=== PATIENT | male | born 1970 | race Two or more races ===

== ENCOUNTER 2024-04-24 13:20 | Inpatient (IN) | payer MEDICAID, OTHER ==
[~2024-04-24] VITALS: Ht 167.6 cm; Wt 72.3 kg
--- NOTE | 2024-04-24 13:31 | ECG ---
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
[2024-04-24 13:51] LABS: Basophils # (auto) 0.1 10 ^3/uL (0-0.2); Basophils % (auto) 0.7 % (0.0-2.0); Eosinophils # (auto) 0.1 10 ^3/uL (0-0.8); Eosinophils % (auto) 0.6 % (0.0-7.0); Hemoglobin 15.7 g/dL (13.5-17.5); Lymphocytes # (auto) 1.1 10 ^3/uL (0.4-5.4); Lymphocytes % (auto) 11.9 % (10.0-50.0); Mean Corpuscular Hemoglobin 27.8 pg (28.0-32.0); Mean Corpuscular Hgb Conc. 33.4 g/dL (32.0-36.0); Mean Corpuscular Volume 83.2 fL (80.0-100.0); Monocytes # (auto) 0.5 10 ^3/uL (0-1.3); Monocytes % (auto) 5.9 % (0.0-12.0); Neutrophils # (auto) 7.2 10 ^3/uL (1.6-8.6); Neutrophils % (auto) 80.9 % (37.0-80.0); Nucleated Red Blood Cells % 0.1 %; Platelet Count (auto) 208 10^3/uL (140-450); Red Blood Cells 5.65 10^6/uL (4.5-5.90); Red Cell Distribution Width 13.8 % (11.8-14.3); White Blood Cell 8.9 10^3/uL (4.4-10.8)
[2024-04-24 14:08] LABS: Alanine Aminotransferase 28 U/L (7-40); Alkaline Phosphatase 98 U/L (46-116); Anion Gap 7 (5-15); Aspartate Aminotransferase 22 U/L (13-40); BUN/Creatinine Ratio 15.8 (10.0-20.0); Bilirubin, Total 0.5 mg/dL (0.2-1.0); Blood Urea Nitrogen 19 mg/dL (9-23); Calcium 9.7 mg/dL (8.7-10.4); Carbon Dioxide 24 mmol/L (20-31); Chloride 106 mmol/L (98-107); Potassium 4.3 mmol/L (3.5-5.1); Sodium 137 mmol/L (136-145); Total Protein 7.4 g/dL (5.7-8.2)
[2024-04-24 14:13] LABS: Glucose 115 mg/dL (74-106)
[2024-04-24 14:39] LABS: Urine Bacteria None Seen /hpf (None Seen)
[2024-04-24 14:50] LABS: Urine Blood Negative /uL (Negative); Urine Clarity Clear (Clear); Urine Color Colorless (Yellow); Urine Protein, UAD Negative (Negative); Urine Specific Gravity 1.003 (1.001-1.035); Urine Squamous Epithelial Cell None Seen /hpf (<5); Urine Urobilinogen Normal (Negative); Urine WBC < 1 /HPF (0-3); Urine pH 5.5 (5.0-9.0)
--- NOTE | 2024-04-24 15:58 | ED.PDOC ---
History of Present Illness HPI Comments 53-year-old male presents with a chief complaint of upper back pain radiating to the chest x 2 hours prior to ER arrival. Describes as burning sensation. 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 Patient at time of assessment is reporting that he feels better than when he came to the hospital. Chief Complaint: Back Pain Time Seen by MD: 15:31 Reviewed Notes: Medications, Allergies Allergies: Coded Allergies: NO KNOWN ALLERGIES (Unverified , 04/24/24) Information Source: Patient Mode of Arrival: Ambulatory Severity: Moderate Timing: Hours Duration: Intermittent Prehospital treatment: None Past Medical History PAST MEDICAL HISTORY: Denies Surgical History: Denies all surgeries Family History Family History: Reviewed,noncontributory to illness Social History Smoker: Non-Smoker Alcohol: Denies ETOH Use Drugs: Denies Drug Use Lives In: Home Constitutional: denies: chills, diaphoresis, fatigue, fever, malaise, sweats, weakness, others EENTM: denies: blurred vision, double vision, ear bleeding, ear discharge, ear drainage, ear pain, ear ringing, eye pain, eye redness, hearing loss, mouth pain , mouth swelling, nasal discharge, nose bleeding, nose congestion, nose pain, photophobia, tearing, throat pain, throat swelling, voice changes, others Respiratory: denies: cough, hemoptysis, orthopnea, SOB at rest, shortness of breath, SOB with excertion, stridor, wheezing, others Cardiovascular: reports: chest pain; denies: dizzy spells, diaphoresis, Dyspnea on exertion, edema, irregular heart beat, left arm pain, lightheadedness, palpitations, PND, syncope, others Gastrointestinal: denies: abdomen distended, abdominal pain, blood streaked bowels, constipated, diarrhea, dysphagia, difficulty swallowing, hematemesis, melena, nausea, poor appetite, poor fluid intake, rectal bleeding, rectal pain, vomiting, others Genitourinary: denies: burning, dysuria, flank pain, frequency, hematuria, incontinence, penile discharge, penile sore, pain, testicle pain, testicle swelling, urgency, others Neurological: denies: dizziness, fainting, headache, left sided numbness, left sided weakness, numbness, paresthesia, pre-existing deficit, right sided numbness, right sided weakness, seizure, speech problems, tingling, tremors, weakness, others Musculoskeletal: reports: back pain; denies: gout, joint pain, joint swelling, muscle pain, muscle stiffness, neck pain, others Integumetry: denies: bruises, change in color, change in hair/nails, dryness, laceration, lesions, lumps, rash, wounds, others Allergic/Immunocompromised: denies: Difficulty Healing, Frequent Infections, Hives, Itching, others Hematologic/Lymphatic: denies: anemia, blood clots, easy bleeding, easy bruising, swollen glands, others Endocrine: denies: excessive hunger, excessive sweating, excessive thirst, excessive urination, flushing, intolerance to cold, intolerance to heat, unexplained weight gain, unexplained weight loss, others Psychiatric: denies: anxiety, bipolar disorder, depression, hopeless, panic disorder, schizophrenia, sleepless, suicidal, others All Other Systems: Reviewed and Negative Physical Exam General Appearance: Moderate Distress, Normal HEENT: Normal ENT Inspection, Pharynx Normal, TMs Normal Neck: Full Range of Motion, Non-Tender, Normal, Normal Inspection Respiratory: Chest Non-Tender, Lungs Clear, No Accessory Muscle Use, No Respiratory Distress, Normal Breath Sounds Cardiovascular: No Edema, No JVD, No Murmur, No Gallop, Normal Peripheral Pulses, Regular Rate/Rhythm Breast Exam: Deferred Gastrointestinal: No Organomegaly, Non Tender, No Pulsatile Mass, Normal Bowel Sounds, Soft Genitalia: Deferred Pelvic: Deferred Rectal: Deferred Extremities: No calf tenderness, Normal capillary refill, Normal inspection, Normal range of motion, Non-tender, No pedal edema Musculoskeletal : Apperance: Normal 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 Was a procedure done?: No EKG EKG : Pulse Rate (adult): 99 [place]: Normal Cardiac Rhythm: NSR Block: None Hypertrophy: None ST: Normal Comments NO ST CHANGES Differential Dx Considerations may include: NSTEMI, acute coronary syndrome, pneumonia, aortic dissection, PE, pancreatitis X-Ray, Labs, Meds, VS Vital Signs Date Time Temp Pulse Resp B/P (MAP) Pulse Ox O2 Delivery O2 Flow Rate FiO2 04/24/24 16:15 92 18 Room Air* 0 21 04/24/24 16:13 85 20 04/24/24 16:13 98.3 92 20 143/86 (105) 97 98.3 04/24/24 15:58 99 04/24/24 13:30 98.4 93 16 145/94 (111) 96 04/24/24 13:30 99 Lab Test 04/24/24 16:25 04/24/24 14:44 04/24/24 13:30 Range/Units Troponin I High Sensitivity 544 *H 230 *H 61 *H </=54 ng/L White Blood Count 8.9 4.4-10.8 10^3/uL Red Blood Count 5.65 4.5-5.90 10^6/uL Hemoglobin 15.7 13.5-17.5 g/dL Hematocrit 47.0 41.0-53.0 % Mean Corpuscular Volume 83.2 80.0-100.0 fL Mean Corpuscular Hemoglobin 27.8 L 28.0-32.0 pg Mean Corpuscular Hemoglobin Concent 33.4 32.0-36.0 g/dL Red Cell Distribution Width 13.8 11.8-14.3 % Platelet Count 208 140-450 10^3/uL Mean Platelet Volume 8.2 6.9-10.8 fL Neutrophils (%) (Auto) 80.9 H 37.0-80.0 % Lymphocytes (%) (Auto) 11.9 10.0-50.0 % Monocytes (%) (Auto) 5.9 0.0-12.0 % Eosinophils (%) (Auto) 0.6 0.0-7.0 % Basophils (%) (Auto) 0.7 0.0-2.0 % Neutrophils # (Auto) 7.2 1.6-8.6 10 ^3/uL Lymphocytes # (Auto) 1.1 0.4-5.4 10 ^3/uL Monocytes # (Auto) 0.5 0-1.3 10 ^3/uL Eosinophils # (Auto) 0.1 0-0.8 10 ^3/uL Basophils # (Auto) 0.1 0-0.2 10 ^3/uL Nucleated Red Blood Cells 0.1 % Urine Color Colorless Yellow Urine Clarity Clear Clear Urine pH 5.5 5.0-9.0 Urine Specific [place] 1.003 1.001-1.035 Urine Protein Negative Negative Urine Ketones Negative Negative Urine Blood Negative Negative /uL Urine Nitrite Negative Negative Urine Bilirubin Negative Negative Urine Urobilinogen Normal Negative mg/dL Urine Leukocyte Esterase Negative Negative /uL Urine RBC 4 0 - 3 /hpf Urine Microscopic WBC < 1 0-3 /HPF Urine Squamous Epithelial Cells None seen <5 /hpf Urine Bacteria None seen None Seen /hpf Urine Glucose Normal Normal mg/dL Sodium Level 137 136-145 mmol/L Potassium Level 4.3 3.5-5.1 mmol/L Chloride Level 106 98-107 mmol/L Carbon Dioxide Level 24 20-31 mmol/L Anion Gap 7 5-15 Blood Urea Nitrogen 19 9-23 mg/dL Creatinine 1.20 0.700-1.30 mg/dL Glomerular Filtration Rate Calc 71 >90 mL/min BUN/Creatinine Ratio 15.8 10.0-20.0 Serum Glucose 115 H 74-106 mg/dL Calcium Level 9.7 8.7-10.4 mg/dL Total Bilirubin 0.5 0.2-1.0 mg/dL Aspartate Amino Transferase (AST) 22 13-40 U/L Alanine Aminotransferase (ALT) 28 7-40 U/L Alkaline Phosphatase 98 46-116 U/L Total Protein 7.4 5.7-8.2 g/dL Albumin 5.0 H 3.2-4.8 g/dL Lipase 61 H 12-53 U/L Current Medications Medications (Trade) Dose Ordered Sig/Analy Route Start Time Stop Time Status Last Admin Aspirin 324 mg ONCE ONCE PO 04/24/24 15:45 04/24/24 15:46 DC 04/24/24 16:38 53-year-old male presents here chest discomfort. Initial EKG demonstrates no significant abnormalities. However troponin is elevated at 66. Repeat troponin continues to rise at 250. and repeat after that he was in the 500s. Attempted to contact Cardiology multiple times.. CT chest was ordered to rule out dissection which there was not. I have started the patient on heparin 5000 units patient has been given aspirin, and also morphine and Zofran for pain control. Hospitalist team has been contacted for admission. Cardiology has again been consulted. Time of 1ST Reevaluation: 16:01 Reevaluation 1ST: Unchanged Patient Education/Counseling: Diagnosis, Treatment, Prognosis Family Education/Counseling: Diagnosis, Treatment, Prognosis Departure 1 Departure Time of Disposition: 16:20 Impression: Primary Impression: NSTEMI (non-ST elevated myocardial infarction) Disposition: 09 ADMITTED INPATIENT Admit to: PIO Condition: Guarded Critical Care Note Critical Care Time?: Yes (35 min-critical care time only) Critical care comment: Time spent evaluating the patient. Multiple patient required multiple re- evaluations given his rising troponins. Attempting to contact Cardiology, evaluating lab work. Ordering labs and radiology studies evaluating radiology studies. Speaking to a specialist. Stability Stability form required: No Heart Score Heart Score: Heart Score Response (Comments) Value History Highly Suspicious 2 EKG Normal 0 Age 45-64 1 Risk Factors 1 or 2 risk factors 1 Troponin >3 x's Normal limit 2 Total 6 I personally scribed for SANDRINE PARK MD ([email or web address]) on 04/24/24 at 15:58. Electronically submitted by Laith Hurley ([email or web address]). I personally scribed for SANDRINE PARK MD ([email or web address]) on 04/24/24 at 16:52. Electronically submitted by Laith Hurley ([email or web address]). SANDRINE PARK MD Apr 24, 2024 15:58
[2024-04-24 16:15] VITALS: PULSE 92; RESP 18
[2024-04-24] MEDS: ASPirin 81 mg TAB PO ONE (16:38)
[2024-04-24] MEDS: IOHEXOL 350 MG/ML 100ML IJ ONE (18:18)
--- NOTE | 2024-04-24 18:22 | DVH ---
EXAM: XR Chest, 2 Views CLINICAL INDICATION: chest pain TECHNIQUE: Frontal and lateral views of the chest. COMPARISON: None FINDINGS: LUNGS AND PLEURAL SPACES: Unremarkable. No consolidation. No pneumothorax. HEART: Unremarkable. No cardiomegaly. MEDIASTINUM: Unremarkable. Normal mediastinal contour. BONES/JOINTS: Unremarkable. No acute fracture. OTHER FINDINGS: . . . IMPRESSION: No acute cardiopulmonary process. HS:Y
--- NOTE | 2024-04-24 18:43 | DVH ---
EXAM: CT Angiography Chest With Intravenous Contrast CLINICAL INDICATION: R/O DISSECTION TECHNIQUE: Axial computed tomographic angiography images of the chest with intravenous contrast. Th is CT exam was performed using one or more of the following dose reduction techniques: automated exp osure control, adjustment of the mA and/or kV according to patient size, and/or use of iterative pey[place] nstruction technique. MIP reconstructed images were created and reviewed. RADIATION DOSE: CTDlvol= CTDIvol mGy, DLP= 341.0 mGy-cm COMPARISON: None FINDINGS: LIMITATIONS: Suboptimal opacification of the pulmonary arteries. PULMONARY ARTERIES: No pulmonary embolism is identified. Some of the distal pulmonary arteries lisa ot be evaluated due to suboptimal opacification. AORTA: No acute findings. No aortic aneurysm or dissection. LUNGS AND PLEURAL SPACES: Unremarkable. No mass. No consolidation. No significant effusion. No p neumothorax. HEART: Unremarkable. No cardiomegaly. No significant pericardial effusion. No evidence of RV dysf unction. BONES/JOINTS: No acute fracture. No dislocation. SOFT TISSUES: Unremarkable. LYMPH NODES: Unremarkable. No enlarged lymph nodes. OTHER FINDINGS: . . IMPRESSION: 1. No pulmonary embolism is identified. Some of the distal pulmonary arteries cannot be evaluated d ue to suboptimal opacification. 2. No aortic aneurysm or dissection. HS:Y
[2024-04-24 19:40] VITALS: PULSE 77; RESP 16
[2024-04-24] MEDS: HEPARIN SODIUM (PORCINE) 5000 UNITS/ML 1ML VIAL IV ONE (19:45)
[2024-04-24] MEDS: ONDANSETRON HCL 4 MG/2 ML VIAL IV ONE (19:46)
[2024-04-24] MEDS: MORPHINE SULFATE 4 MG/ML SYR/VIAL IV ONE (19:46)
[2024-04-24] MEDS ORDERED: MORPHINE SULFATE INJ 2 MG/ml SYRG IV PRN (21:30)
[2024-04-24] MEDS: LOSARTAN POTASSIUM 25 MG TAB PO ONE (21:56)
[2024-04-24] MEDS: ATORVASTATIN 20 MG TAB PO SCH (21:59)
[2024-04-24 22:22] VITALS: PULSE 103; RESP 24; O2SAT 96
[2024-04-24 22:24] LABS: INR 0.99 (0.9-1.15); Partial Thromboplastin Time 60.9 SEC (24.5-34.5); Prothrombin Time 10.5 sec (9.3-11.8)
[2024-04-24 22:30] LABS: Triglycerides 82 mg/dL (< 150)
[2024-04-24 22:32] LABS: HDL Cholesterol 56 mg/dL (40-59)
--- NOTE | 2024-04-24 22:47 | DVHHPRES ---
History of Present Illness Resident Creating Document: AMAN TERRELL RESDIENT History of Present Illness This is a 53-year-old male with past medical history of dyslipidemia, presented to the hospital with upper back pain since 2 hours. Per patient, the patient developed sudden onset upper back pain during physical activity, constant, dull in nature, 7/10 in intensity, with nose specific exacerbating or relieving factor. Patient is also reports hotness feeling in anterior chest which lasted for almost 20 minutes. Patient also had 1 episode of same symptom 5 months back which lasted for 5 minutes. Patient denies fever, cough, shortness of breath, nausea, vomiting, statin, palpitation, headache, visual disturbance, or any new onset motor and sensory deficits. PMHx: Dyslipidemia PSHx: Not significant Family history: Mom has diabetes, and father has hypertension Social history: Patient lives with the family at home, ex-smoker, drink occa sionally and denies any other drug use Home medication: Atorvastatin 10 mg daily (stopped taking 2 months back) Allergic history: No known allergies Review of Systems Review of Systems General: patient denies fever, fatigue, weaknes, sweating, any recent changes in appetite and weight HEENT: No headaches, visiual changes, hearing loss, tinnitus, nasal congestion and discharge, and sore throat. Cardiovascular: Reports upper back pain and anterior chest tightness Respiratory: No cough, and wheezing. Gastrointestinal: Denies nausea, vomiting, dysphagia, odynophagia, heartburn, a bdominal pain, flatulence, bloating, diarrhea, constipation, change in stool, or blood in stool. Genitourinary: No dysuria, hematuria, discharge, frequency, urgency, nocturia, incontinence, and urinary retention. Endocrine: No heat or cold intolerance, polydipsia, polyuria, and polyphagia. Neurological: No dizziness, extremity weakness and numbness, tremors, gait disturbance, seizures, and memory impairment. Psychiatric: Denies depression, anxiety,or insomnia. Musculoskeletal: Denies neck pain, stiffness and swelling, back pain, muscle weakness, joint pain, stiffness, swelling, or limited range of motion. Skin: No rashes, itching, skin lesion, changes in hair, nail, skin texture and breast. Hematologic/Lymphatic: Denies easy bruising, bleeding tendencies, or lymph node enlargement. Allergies: Coded Allergies: NO KNOWN ALLERGIES (Unverified , 04/24/24) Medications Current Medications Medications Dose Ordered Sig/Analy Route Start Time Stop Time Status Last Admin Dose Admin Nitroglycerin 0.4 mg Q5MINP PRN SL 04/24/24 21:30 Morphine Sulfate 2 mg Q30M PRN IV 04/24/24 21:30 Atorvastatin Calcium 80 mg HS PO 04/24/24 22:00 04/24/24 21:59 80 MG Heparin Sodium/ Dextrose 250 ml @ 9 mls/hr Q24H IV 04/24/24 22:00 Losartan Potassium 25 mg DAILY PO 04/25/24 10:00 Exam Vital Signs Vital Signs Date Time Temp Pulse Resp B/P (MAP) Pulse Ox O2 Delivery O2 Flow Rate FiO2 04/24/24 22:20 103 21 175/103 (127) 96 04/24/24 20:25 99.0 99.0 04/24/24 19:40 Room Air* 0 21 Exam General Appearance: Alert, Oriented X3, Cooperative, No acute distress HEENT: Atraumatic, PERRLA, EOMI, Mucous membrane moist/pink Respiratory: Clear to auscultation, Normal air movement Cardiovascular: Regular rate, Normal S1, Normal S2, No murmurs, no chest wall tenderness Abdominal: Normal bowel sounds, Soft, No tenderness, No hepatospenomegaly, No masses Extremities: No clubbing, No cyanosis, No edema, Normal pulses, No tenderne ss/swelling Skin: No rashes, No breakdown, No significant lesion Neuro: Normal gait, Normal speech, Strength at 5/5 X4 ext, Normal tone, Sensation intact, Cranial nerves 3-12 NL, Reflexes 2+ Psych/Mental Status: Mental status NL, Mood NL Labs/Xrays Labs Test 04/24/24 21:51 04/24/24 13:30 Range/Units Prothrombin Time 10.5 9.3-11.8 sec Prothrombin Time INR 0.99 0.9-1.15 Activated Partial Thromboplast Time 60.9 H 24.5-34.5 SEC White Blood Count 8.9 4.4-10.8 10^3/uL Red Blood Count 5.65 4.5-5.90 10^6/uL Hemoglobin 15.7 13.5-17.5 g/dL Hematocrit 47.0 41.0-53.0 % Mean Corpuscular Volume 83.2 80.0-100.0 fL Mean Corpuscular Hemoglobin 27.8 L 28.0-32.0 pg Mean Corpuscular Hemoglobin Concent 33.4 32.0-36.0 g/dL Red Cell Distribution Width 13.8 11.8-14.3 % Platelet Count 208 140-450 10^3/uL Mean Platelet Volume 8.2 6.9-10.8 fL Neutrophils (%) (Auto) 80.9 H 37.0-80.0 % Lymphocytes (%) (Auto) 11.9 10.0-50.0 % Monocytes (%) (Auto) 5.9 0.0-12.0 % Eosinophils (%) (Auto) 0.6 0.0-7.0 % Basophils (%) (Auto) 0.7 0.0-2.0 % Neutrophils # (Auto) 7.2 1.6-8.6 10 ^3/uL Lymphocytes # (Auto) 1.1 0.4-5.4 10 ^3/uL Monocytes # (Auto) 0.5 0-1.3 10 ^3/uL Eosinophils # (Auto) 0.1 0-0.8 10 ^3/uL Basophils # (Auto) 0.1 0-0.2 10 ^3/uL Nucleated Red Blood Cells 0.1 % Urine Color Colorless Yellow Urine Clarity Clear Clear Urine pH 5.5 5.0-9.0 Urine Specific [place] 1.003 1.001-1.035 Urine Protein Negative Negative Urine Ketones Negative Negative Urine Blood Negative Negative /uL Urine Nitrite Negative Negative Urine Bilirubin Negative Negative Urine Urobilinogen Normal Negative mg/dL Urine Leukocyte Esterase Negative Negative /uL Urine RBC 4 0 - 3 /hpf Urine Microscopic WBC < 1 0-3 /HPF Urine Squamous Epithelial Cells None seen <5 /hpf Urine Bacteria None seen None Seen /hpf Urine Glucose Normal Normal mg/dL Sodium Level 137 136-145 mmol/L Potassium Level 4.3 3.5-5.1 mmol/L Chloride Level 106 98-107 mmol/L Carbon Dioxide Level 24 20-31 mmol/L Anion Gap 7 5-15 Blood Urea Nitrogen 19 9-23 mg/dL Creatinine 1.20 0.700-1.30 mg/dL Glomerular Filtration Rate Calc 71 >90 mL/min BUN/Creatinine Ratio 15.8 10.0-20.0 Serum Glucose 115 H 74-106 mg/dL Calcium Level 9.7 8.7-10.4 mg/dL Total Bilirubin 0.5 0.2-1.0 mg/dL Aspartate Amino Transferase (AST) 22 13-40 U/L Alanine Aminotransferase (ALT) 28 7-40 U/L Alkaline Phosphatase 98 46-116 U/L Total Protein 7.4 5.7-8.2 g/dL Albumin 5.0 H 3.2-4.8 g/dL Lipase 61 H 12-53 U/L Assessment/Plan Assessment/Plan Non ST-elevation [place] First EKGs showed subtle ST changes in inferior leads, subsequent EKG showed more ST depression on inferior leads and mild ST elevation in aVR Serial Trop I was up trending, 61-->230-->554-->1242-->705 Cardiology consulted, discussed patient's status with Dr. Segura and recommended metoprolol 25 mg, nitrate for chest pain, and continue heparin drip Echocardiogram Heparin drip Aspirin 81 mg daily Atorvastatin 80 mg daily Metoprolol 25 mg daily Losartan 25 mg daily Monitoring trop I and serial EKG Ruled out pulmonary emboli Chest CT angiogram shows no pulmonary emboli Dyslipidemia Continue atorvastatin DIET: NPO from midnight DVT PROPHYLAXIS: On heparin CODE STATUS: Goal of care discussed for more than 21 minutes, full code DISPOSITION: Telemetry Patient's status and paln discussed with the patient and the on the bedside. Case discussed with Dr. Lion Plan discussed with: Patient, Other (RN) My Orders Orders - AMAN TRERELL RESDIBROOKS Procedure Category Date Status Time Admit ADMIT 04/24/24 Transmitted 21:27 Nitroglycerin PHA 04/24/24 In Process Sublingual (Ntrostat 21:30 Morphine Sulfate PHA 04/24/24 In Process Injection 21:30 Oxygen By Nasal RT 04/24/24 Transmitted Cannula 21:27 Stat Ekg For Chest APOLONIA 04/24/24 In Process Pain 21:27 Notify Of Changes APOLONIA 04/24/24 In Process From Base 21:27 Building Drafting Officer For APOLONIA 04/24/24 In Process 24 Hours 21:27 Emergency Dysrhythmia APOLONIA 04/24/24 In Process Protocol 21:27 Rhythm Strips Once APOLONIA 04/24/24 In Process Every Shift 21:27 Electrocardigram EKG 04/24/24 Logged 21:32 Troponin-I Hs LAB 04/24/24 In Process 21:32 Echo 2d Mode Cardiac US 04/24/24 Logged DOP 21:32 Lipid Panel LAB 04/24/24 In Process 21:32 Thyroid Stimulating LAB 04/24/24 In Process Hormone 21:32 Drug Screen LAB 04/24/24 Logged 21:32 B-Type Natriuretic LAB 04/24/24 In Process Peptide 21:32 Electrocardiogram EKG 04/24/24 Logged With Magnet 21:32 Atorvastatin (Lipitor) PHA 04/24/24 In Process 22:00 Platelet Monitoring APOLONIA 04/24/24 In Process 21:32 Heparin Per APOLONIA 04/24/24 In Process Standardized Proce 21:32 Discontinue All Im APOLONIA 04/24/24 In Process Injections 21:32 Heparin Drip/D5w PHA 04/24/24 In Process 100units/Ml 22:00 Losartan Tablet PHA 04/25/24 In Process (Cozaar Tablet) 10:00 Cardiac DIET 04/25/24 Transmitted Diet-2gna,Lofat,Lochol Breakfast Npo After Midnight DIET 04/25/24 Transmitted Breakfast Date of Service: Apr 24, 2024 Billing Provider: HANNY LION MD Common Visit Codes: [id number] INP/OBS CARE (HIGH) AMAN TERRELL RESDIENT Apr 24, 2024 22:46 HANNY LION MD Apr 26, 2024 00:17
[2024-04-24 22:49] LABS: Cholesterol 292 mg/dL (< 200); LDL Cholesterol 241 mg/dL (< 100)
[2024-04-24] MEDS: HEPARIN DRIP/D5W 100UNITS/ML 250 ML IV SCH (23:01)
[2024-04-25] VITALS (12 sets, daily range): BP systolic 111–150; BP diastolic 65–92; PULSE 60–89; RESP 12–20; TEMP 97–98.5; O2SAT 94–98
[2024-04-25] MEDS: NITROGLYCERIN 0.4 MG SL TAB SL PRN (00:22)
[2024-04-25] MEDS: METOPROLOL TARTRATE 25 MG TAB PO ONE (00:25)
--- NOTE | 2024-04-25 08:08 | DVHINCON2 ---
Date Seen: Apr 25, 2024 Referring Physician MD Jair resident Reason for Consultation Elevated troponin History of Present Illness This is a 53-year-old male patient who presents to the emergency room with chief complaint of back and chest pain. The patient reports at approximately 11:00 a.m. yesterday while at work he began experiencing upper and mid back pain. 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 Shortly thereafter, while driving, the patient reports feeling a burning sensation across his chest. He describes the pain as unprovoked, constant, burning in nature, and midsternal with radiation across his left and right side of chest. He denies any associated symptoms such as shortness of breath, palpitations, or dizziness. The patient states he pulled over at the nearest gas station and called 911. He states that when paramedics arrived they told him that his blood pressure was high and that they would take him to the emergency room, but he refused at that time. The patient states he went home and told his about what happened, and she convinced him to come to the emergency room for further evaluation. Initial twelve lead electrocardiogram reveals normal sinus rhythm with ST segment changes to inferior leads. Initial troponin level of 61ng/L with significant up trend thereafter and a peak level noted at 1242ng/L. Significant past medical history includes dyslipidemia, anxiety, tobacco use, and obesity. Patient denies any previous cardiac workup. Past Medical History Past medical history reviewed. No other significant than mentioned above. Past Surgical History Denies all previous surgeries Family History: Diabetes mellitus G8 MOTHER Hypertension G8 FATHER Family History Family history reviewed. Social History The patient has a two pack-year history, quit smoking approximately 10 years ago The patient reports approximately six beers per week Patient denies any illicit drug use Allergies: Coded Allergies: NO KNOWN ALLERGIES (Unverified , 04/24/24) Home Meds No Active Prescriptions or Reported Meds Home Meds Home medications reviewed. Current Medications Current Medications Medications (Trade) Dose Ordered Sig/Analy Route PRN Reason Start Time Stop Time Status Last Admin Nitroglycerin (Ntrostat Sublingual) 0.4 mg Q5MINP PRN SL FOR CHEST PAIN 04/24/24 21:30 04/25/24 00:22 Morphine Sulfate 2 mg Q30M PRN IV FOR CHEST PAIN 04/24/24 21:30 Atorvastatin Calcium (Lipitor) 80 mg HS PO 04/24/24 22:00 04/24/24 21:59 Heparin Sodium/ Dextrose 250 ml @ 9 mls/hr Q24H IV 04/24/24 22:00 04/24/24 23:01 Losartan Potassium (Cozaar Tablet) 25 mg DAILY PO 04/25/24 10:00 Aspirin 81 mg DAILY PO 04/25/24 10:00 Review of Systems Constitutional: No symptom reported Ears, Nose, & Throat: No symptom reported Eyes: No symptom reported Neurological: No symptoms reported Pulmonary/Respiratory: No symptoms reported Cardiovascular: Chest pain; back pain Gastrointestinal: No symptom reported Genitourinary: No symptom reported Musculoskeletal: No symptom reported Skin: No symptom reported Psychiatric: No symptom reported Endocrine: No symptom reported Hematologic/Lymphatic: No symptom reported Vital Signs Vital Signs Date Time Temp Pulse Resp B/P (MAP) Pulse Ox O2 Delivery O2 Flow Rate FiO2 04/25/24 05:00 98.2 75 17 127/87 (100) 97 98.2 04/25/24 03:40 Room Air* 0 21 Physical Exam General Appearance: Cooperative. Well-developed. Well-nourished. No acute distress. Pulmonary/Respiratory: Clear, bilateral breaths sounds. Cardiovascular/Chest: Regular rate and rhythm. Peripheral Pulses: 2+ Radial (R). 2+ Radial (L). 2+ Pedal (R). 2+ Pedal (L) Abdominal Exam: Normal bowel sounds. Ankle Exam: Negative ankle edema Lower extremities: Negative lower extremity edema Neuro/Mental Status: A/OX4, coherent. Thoughts/Psych: Normal thought pattern. Appropriate mood and affect. Good judgment and insight. Appearance: No acute distress. Skin Exam: Normal inspection. Normal color. Warm and dry. Labs/Diagnostic Data Labs Test 04/25/24 07:24 04/25/24 01:02 04/24/24 21:51 04/24/24 13:30 Range/Units Troponin I High Sensitivity 705 *H </=54 ng/L B-Type Natriuretic Peptide 10.61 0-100 pg/mL Triglycerides Level 82 < 150 mg/dL Cholesterol Level 292 H < 200 mg/dL LDL Cholesterol 241 H < 100 mg/dL HDL Cholesterol 56 40-59 mg/dL Thyroid Stimulating Hormone (TSH) 3.00 0.55-4.78 uIU/mL Eosinophils (%) (Auto) 0.6 0.0-7.0 % Eosinophils # (Auto) 0.1 0-0.8 10 ^3/uL Basophils # (Auto) 0.1 0-0.2 10 ^3/uL Nucleated Red Blood Cells 0.1 % Urine Color Colorless Yellow Urine Clarity Clear Clear Urine pH 5.5 5.0-9.0 Urine Specific Buna 1.003 1.001-1.035 Urine Protein Negative Negative Urine Ketones Negative Negative Urine Blood Negative Negative /uL Urine Nitrite Negative Negative Urine Bilirubin Negative Negative Urine Urobilinogen Normal Negative mg/dL Urine Leukocyte Esterase Negative Negative /uL Urine RBC 4 0 - 3 /hpf Urine Microscopic WBC < 1 0-3 /HPF Urine Squamous Epithelial Cells None seen <5 /hpf Urine Bacteria None seen None Seen /hpf Urine Glucose Normal Normal mg/dL Sodium Level 137 136-145 mmol/L Potassium Level 4.3 3.5-5.1 mmol/L Chloride Level 106 98-107 mmol/L Carbon Dioxide Level 24 20-31 mmol/L Anion Gap 7 5-15 Blood Urea Nitrogen 19 9-23 mg/dL Creatinine 1.20 0.700-1.30 mg/dL Glomerular Filtration Rate Calc 71 >90 mL/min BUN/Creatinine Ratio 15.8 10.0-20.0 Serum Glucose 115 H 74-106 mg/dL Calcium Level 9.7 8.7-10.4 mg/dL Total Bilirubin 0.5 0.2-1.0 mg/dL Aspartate Amino Transferase (AST) 22 13-40 U/L Alanine Aminotransferase (ALT) 28 7-40 U/L Alkaline Phosphatase 98 46-116 U/L Total Protein 7.4 5.7-8.2 g/dL Albumin 5.0 H 3.2-4.8 g/dL Lipase 61 H 12-53 U/L Assessment NSTEMI, rule out coronary artery disease Dyslipidemia Tobacco use Obesity Plan/Recommendation We will continue with the following plan/recommendations (Dr. Ballard): * Echocardiogram to evaluate cardiac function * Chest pain protocol * MATTHEW score: 3 points * HEART score: 5 points * Heparin drip per pharmacy protocol * Lipid-lowering agent Case discussed with . Given the patient's clinical presentation, twelve lead electrocardiogram's dynamic ST segment changes, and elevated troponin level, the patient may benefit from a coronary angiogram with left heart catheterization. The procedure was discussed with the patient full detail including risks and benefits. Risks include but are not limited to bleeding, contrast induced nephropathy, stroke, and even . The patient understands and is agreeable to undergo the procedure. We will schedule the patient at soonest availability on 04/25/24. Thank you for allowing us to care for this patient. Please call with any questions or concerns. Critical care time spent: 40 minutes This medical document was created using an electronic medical record system with voice recognition software and computerized dictation system. Although this document has been carefully reviewed, there might still be some phonetic and typographical errors. Occasional wrong-word or ``sound-alike substitutions may have occurred due to the inherent limitations of voice recognition software. These areas are purely typographical due to imperfections of the software programs and do not reflect any compromise in the patient's medical care. Please read the chart carefully and recognize, using context, where these substitutions have occurred. Plan discussed with: Patient NYHA Physical activity limitations: NA Date of Service: Apr 25, 2024 Billing Provider: NITIN BALLARD MD Cardiology Common Codes: 94407-[id number] INP/OBS CARE (High) Cardiology Consultation Codes: 16505-[id number] CONSULT <45MIN SAMPSON TORRES Apr 25, 2024 08:08
[2024-04-25 08:14] LABS: Basophils # (auto) 0.1 10 ^3/uL (0-0.2); Basophils % (auto) 0.9 % (0.0-2.0); Eosinophils # (auto) 0.1 10 ^3/uL (0-0.8); Eosinophils % (auto) 1.1 % (0.0-7.0); Hematocrit 45.8 % (41.0-53.0); Hemoglobin 15.2 g/dL (13.5-17.5); Lymphocytes # (auto) 1.8 10 ^3/uL (0.4-5.4); Lymphocytes % (auto) 26.2 % (10.0-50.0); Mean Corpuscular Hemoglobin 27.6 pg (28.0-32.0); Mean Corpuscular Hgb Conc. 33.2 g/dL (32.0-36.0); Mean Corpuscular Volume 83.4 fL (80.0-100.0); Monocytes # (auto) 0.5 10 ^3/uL (0-1.3); Monocytes % (auto) 7.5 % (0.0-12.0); Neutrophils # (auto) 4.4 10 ^3/uL (1.6-8.6); Neutrophils % (auto) 64.3 % (37.0-80.0); Platelet Count (auto) 188 10^3/uL (140-450); White Blood Cell 6.8 10^3/uL (4.4-10.8)
[2024-04-25 08:38] LABS: INR 1.02 (0.9-1.15); Partial Thromboplastin Time 51.3 SEC (24.5-34.5); Prothrombin Time 10.8 sec (9.3-11.8)
[2024-04-25] MEDS: LIDOCAINE 2%HCL (LOCAL ANESTH.) INJ 20ML MDV ONE (09:57)
[2024-04-25] MEDS: fentaNYL CITRATE 100 MCG/2 ML VL ONE (09:57)
[2024-04-25] MEDS: VERAPAMIL 2.5MG/ML INJ 2ML VIAL IV ONE (09:57)
[2024-04-25] MEDS: MIDAZOLAM HCL 2MG/2ML 2ml VIAL (1mg/ml) ONE (09:57)
[2024-04-25] MEDS: HEPARIN SODIUM (PORCINE) 5000 UNITS/ML 1ML VIAL ONE (10:18)
[2024-04-25] MEDS: TICAGRELOR 90 MG TAB ONE (10:28)
[2024-04-25] MEDS: ASPirin 81 mg TAB ONE (10:34)
[2024-04-25] MEDS: ASPirin 81 mg TAB PO SCH (10:34)
--- NOTE | 2024-04-25 10:36 | DVHPNRES ---
Progress Note Date Seen: Apr 25, 2024 Resident Creating Document: TIMOTHY LONGORIA RESIDENT Medical Necessity Reason Pt with a Central, PICC or Fol: No Subjective Review of Systems This is a 53-year-old male with past medical history of dyslipidemia presented to the ED with a chief complaint of back and chest pain since 11:00 a.m. prior to this admission. The patient states that yesterday while he was driving he felt a burning sensation across his chest which is constant midsternal burning in nature and radiation necrosis left and right side of the chest associated with elevation of blood pressure and systolic was in 190 that prompted this visit. patient denied shortness of breath ,palpitation, dizziness, blurring of vision, vomiting, abdominal pain or any change in bowel and bladder habit. Patient was seen and examined on the bedside. he is alert oriented x3 and echo complains of some mild chest discomfort and throbbing headache. No other active complaints. Constitutional: No: Fever, Chills, Sweats, Weakness, Malaise, Other Eyes: No: Pain, Vision change, Conjunctivae inflammation, Eyelid inflammation, Other, Redness ENT: No: Ear pain, Ear discharge, Nose pain, Nose discharge, Nose congestion, Mouth pain, Mouth swelling, Throat pain, Throat swelling, Other Respiratory: Shortness of breath, improving No: Cough, Dry,Wheezing, Hemoptysis, Pleuritic Pain, Sputum, Wheezing, Other Cardiovascular: Chest Pain, No Palpitations, Orthopnea, Paroxysmal Noc. Dyspnea, Edema, Lt Headedness, Other Gastrointestinal: No: Nausea, Vomiting, Abdominal Pain, Diarrhea, Constipation, Melena, Hematochezia, Other Musculoskeletal: Back pain, No: other, neck pain, shoulder pain, arm pain, hand pain, leg pain, foot pain Neurological:; No: Weakness, Numbness, Incoordination, Change in speech, Confusion, Seizures Objective vital signs Vital Sign Date Time Temp Pulse Resp B/P (MAP) Pulse Ox O2 Delivery O2 Flow Rate FiO2 04/25/24 08:30 98.0 71 18 111/65 (80) 98 98.0 04/25/24 08:00 Room Air* 0 21 Total Intake and Output 04/24/24 04/24/24 04/25/24 15:00 23:00 07:00 Intake Total 18 ml Output Total 220 ml Balance -202 ml medications Current Medications Medications Dose Ordered Sig/Analy Route Start Time Stop Time Status Last Admin Dose Admin Nitroglycerin 0.4 mg Q5MINP PRN SL 04/24/24 21:30 04/25/24 00:22 0.4 MG Morphine Sulfate 2 mg Q30M PRN IV 04/24/24 21:30 Atorvastatin Calcium 80 mg HS PO 04/24/24 22:00 04/24/24 21:59 80 MG Heparin Sodium/ Dextrose 250 ml @ 9 mls/hr Q24H IV 04/24/24 22:00 04/24/24 23:01 9 MLS/HR Losartan Potassium 25 mg DAILY PO 04/25/24 10:00 Aspirin 81 mg DAILY PO 04/25/24 10:00 Examination Physical examination: General Appearance: Alert, Oriented X3, Cooperative, No acute distress HEENT: Atraumatic, PERRLA, EOMI, Mucous membrane moist/pink Respiratory: Clear to auscultation, Normal air movement Cardiovascular: Regular rate, Normal S1, Normal S2, No murmurs, no chest wall tenderness Abdominal: Normal bowel sounds, Soft, No tenderness, No hepatosplenomegaly, No masses Extremities: No clubbing, No cyanosis, No edema, Normal pulses, No tenderness/swelling Skin: No rashes, No breakdown, No significant lesion Neuro: Normal gait, Normal speech, Strength at 5/5 X4 ext, Normal tone, Sensation intact, grossly intact cranial nerves Psych/Mental Status: Mental status NL, Mood NL laboratory and microbiology Laboratory Tests 04/25/24 07:24 04/24/24 13:30 Test 04/24/24 13:30 Range/Units Serum Glucose 115 H 74-106 mg/dL Labs and/or images reviewed: Labs reviewed by me, Image(s) reviewed by me Problem List/Assessment/Plan Problem List/Assessment/Plan Assessment/Plan # NSTEMI # Hypertensive heart disease - First EKGs showed subtle ST changes in inferior leads, subsequent EKG showed more ST depression on inferior leads and mild ST elevation in aVR - Troponin was up trending, 61-->230-->554-->1242-->705 - Lipid panel revealed elevated total cholesterol and LDL - IV heparin drip per protocol - Patient underwent Left heart cath today and s/p PTCAX3 stents to Ostial and proximal 1st diagonal branch, distal LAD and mid to distal LAD - patient was loaded with Plavix and continue aspirin 81 mg daily and Plavix 75 mg daily - Atorvastatin 80 mg p.o. at HS - IV normal saline at 75 mL/hours - Losartan 25 mg daily - Ordered echo # Ruled out pulmonary emboli Chest CT angiogram shows no pulmonary emboli Code status discussed with the patient for 20 minutes full code Plan discussed with Dr. Castillo. Plan discussed with: Patient, Other (RN) My Orders My Orders Orders - TIMOTHY LONGORIA Procedure Category Date Status Time * Cardiology Consult CONS 04/25/24 Transmitted 07:08 Addendum Addendum Addendum I was physically present for the hunter portions of the service provided to patient by THE RESIDENT. I have reviewed the documentation, discussed the case with resident and agree with the resident's documentation except as noted. Also the patient's clinical case was discussed with the patient's nurse. This medical document was created using an electronic medical record system with computerized dictation system. Although this document has been carefully reviewed, there might still be some phonetic and typographical errors. These areas are purely typographical due to imperfections of the software programs, and do not reflect any compromise in the patient's medical care. Late signature. Date of Service: Apr 25, 2024 Billing Provider: LEISA CASTILLO MD Common Visit Codes: [id number] INP/OBS CARE(HIGH) Secondary Visit Codes: 37175-[id number] CARE PLAN 30 MINUTES (20 minutes) TIMOTHY LONGORIA Apr 25, 2024 10:36 LEISA CASTILLO MD Apr 26, 2024 19:18
[2024-04-25] MEDS: SODIUM CHLORIDE 0.9% 1,000 ML IV ONE (11:15)
--- NOTE | 2024-04-25 11:25 | DVHOP2 ---
Operative Report - 2 Report Details Date: 04/25/24 Preop Diagnosis: Patient presented with chest pain. He was diagnosed with non ST-elevation myocardial infarction. He has been having dynamic EKG changes with ST depressions and intermittent chest pain. He was brought urgently to the dental laboratory manager for coronary angiography and potential intervention. Postop Diagnosis: 1. Subtotal occlusion of a medium-sized ostial and proximal 1st diagonal branch treated today with a drug-eluting stent. 2. Severe stenosis in distal LAD treated today with drug-eluting stent. 3. Severe stenosis in the mid to distal LAD treated today with a drug-eluting stent. 4. Severe stenosis in the small proximal ramus branch has will be treated medically. 5. Mild to moderate disease in the left circumflex and RCA. 6. Low LVEDP. Surgeon: Ashley Ballard MD Anesthesiologist: Patient was deemed an adequate candidate for conscious sedation. Versed and fentanyl were given during the procedure. He received a total of 2 mg of Versed and 50 mcg of fentanyl. I was available throughout the procedure for continuous [id number] monitoring. Anesthesia: Local Consent: The patient was informed of the risks and benefits of the procedure. These inc lude but are not limited to complications of anesthesia, postoperative infection, incomplete relief of symptoms, recurrence of symptoms, damage to blood vessels, nerves and tendons, deep venous thrombosis, pulmonary embolism and possible need for repeat surgery in the future. Estimated Blood Loss: 15 cc Name of Procedure Performed 1. Left heart catheterization. 2. Selective coronary angiography. 3. Percutaneous coronary intervention with a stenting of ostial and proximal 1st diagonal branch. 4. Percutaneous coronary intervention with a stenting of distal LAD. 5. Percutaneous intervention with stenting of mid to distal LAD. 6. Moderated sedation. Procedure Details Procedure Details: The patient was brought to the dental laboratory manager in a stable condition. Patient was found to have normal pulses in the right radial artery. The right wrist area was sterilized and draped in a sterile fashion. The skin was anesthetized using 1% lidocaine. Access in the right radial artery was obtained using a Seldinger approach. An 11 cm sheath was placed in the right radial artery. The left heart catheterization, left coronary angiography, and right coronary angiography were performed using a 6 Afghan Freddie catheter. At the completion of the procedure hemostasis in radial artery was obtained using a TR band. Findings: Hemodynamics: Aortic pressure was 100/60 mm Hg, LVEDP was 3 mm Hg. There is no significant gradient on LV to aorta pullback. Coronary angiography: The left main coronary artery is a normal caliber trifurcating vessel. It is free of any significant disease. The left anterior descending artery is normal caliber vessel that extends to the apex. Proximal to mid vessel has mild diffuse disease. Mid vessel has 70% segmental stenosis. Distal vessel has 90% segmental stenosis. There is a 1st diagonal branch that is moderate in size and has ostial and proximal diffuse 99% stenosis with MATTHEW 2 flow. There is a 2nd diagonal branch that is small in size and has ostial 50% stenosis of the is discrete. Ramus intermedius branch. It is a small vessel. Has proximal 90% stenosis. The left circumflex artery is a normal-caliber nondominant vessel. Mid vessel has 40% stenosis. The obtuse marginal branch and left posterolateral branch are with no significant disease. The right coronary artery is a normal caliber and dominant vessel. It has mild diffuse disease. RPDA is with no significant stenosis. The right posterolateral branch has 40% diffuse proximal to mid disease. Interventions: Stenting of ostial and proximal 1st diagonal branch: Lesion severity is 99%. It is a noncalcified vessel. Lesion length is 20 mm. Initial flow is MATTHEW. Guide catheter used was 6 Afghan XB 3.0. The vessel was wired using 0.014 runthrough wire. Balloon angioplasty was performed using a 2.0 x 12 mm emerge balloon at nominal pressure. This was followed by stenting using a 2.25 x 26 mm thomas drug-eluting stent deployed at nominal pressure. Postdilatation was performed using a stent balloon at 14 atmosphere. Post angio showed no residual stenosis, normal flow, and no dissection. Stenting of distal LAD: Lesion severity is 90%. It is a noncalcified and non bifurcation lesion. Lesion length is12 mm. Initial flow is MATTHEW 3. The vessel was wired using 0.014 runthrough wire. Balloon angioplasty was performed using a 2.5 x 12 mm emerge balloon at nominal pressure. This was followed by stenting using a 2.25 x 15 mm thomas drug-eluting stent deployed at nominal pressure. This was post dilated using a 2.75 mm stent balloon. Post angio showed no residual stenosis, normal TIMI3 flow, no dissection. Stenting of mid to distal LAD: Lesion severity is 70%. It is a noncalcified and non bifurcation lesion. Lesion length is 20 mm. Initial flow is MATTHEW 3. Stenting was performed using a 2.75 x 22mm thomas drug-eluting stent that overlapped with the distal LAD stent. This was deployed at normal pressure. Postdilatation was performed using the stent balloon at 14 atmosphere. The overlap segment of the 2 stents were also postdilated using stent balloon at nominal pressure. Post angio showed no residual stenosis, normal TIMI3 flow, no dissection. Impressions: 1. Low LVEDP. 2. Severe stenosis/subtotal occlusion in the ostial and proximal 1st diagonal branch which is the culprit for this presentation. This was treated today with drug-eluting stent. 3. Severe stenosis of the distal LAD treated today with drug-eluting stent. 4. Severe stenosis of mid to distal LAD treated today with drug-eluting stent. 5. Severe stenosis in the proximal small ramus intermedius branch that will be treated medically. 6. Obvj-cn-umylopee disease in the left circumflex and RCA. Plan: 1. Patient was loaded with Brilinta in the dental laboratory manager. Continue Brilinta 90 mg twice daily for 12 months. Brilinta can be switched to Plavix in 1 month if needed. 2. Continue aspirin 81 mg daily. 3. Aggressive medical therapy and risk factors modifications. Condition Stable Disposition Still a Patient ASHLEY BALLARD MD Apr 25, 2024 11:25
[2024-04-25 14:18] LABS: INR 1.09 (0.9-1.15); Prothrombin Time 11.5 sec (9.3-11.8)
[2024-04-25 14:23] LABS: Partial Thromboplastin Time > 139.0 SEC (24.5-34.5)
[2024-04-25] MEDS: LOSARTAN POTASSIUM 25 MG TAB PO SCH (14:46)
--- NOTE | 2024-04-25 17:06 | DVHSR ---
APPROVED REPORT EXAM: LIMITED Two-dimensional and M-mode echocardiogram with Doppler and color Doppler. Blood Pressure: 111/65 mmHg INDICATION NSTEMI RISK FACTORS Height: 5' 6", Weight: 159 DIMENSIONS LVDd4.7 (3.8-5.7cm)LA (2D)3.2 (1.9-4.0cm)Aortic Root3.3 (2.0-3.7cm) LVDs3.3 (2.5-4.0cm)LA (MM) (1.9-4.0cm)Aortic Cusp Exc1.9 (1.5-2.0cm) EF (%) 57.0 (55-70%)Rt. Atrium2.9 (1.9-4.0cm)Asc. Aorta cm IVSd1.0 (0.7-1.1cm)RV (D) (1.8-2.4cm) PWd0.9 (0.7-1.1cm) Mitral Valve MitralMitral Stenosis E wave0.70m/sMV Mean GR.mmHg A wave0.80m/sMV Peak GR.mmHg E/A ratio0.92D MVAcm2 Aortic Valve Aortic ValveAortic Stenosis V10.80m/Shad Mean GR.5mmHg V21.40m/Shad Peak GR.9mmHg LVOT Diameter2.4 (1.8-2.4cm)Doppler AVA2.58cm2 LEFT VENTRICLE The left ventricle is of normal size. Wall thickness is normal. Ejection fraction is normal and is estimated at 55-60%. There is no gross wall motion abnormalities but endocardial definition is subop timal. Diastolic function appears to be preserved. E to E prime ratio is in the normal range. RIGHT VENTRICLE The right ventricle is of normal size. Systolic function is normal. ATRIA Both atria are of normal size. Intra-atrial septum is not well visualized. MITRAL VALVE Normal in structure and function. No significant mitral regurgitation. PULMONIC VALVE Likely normal. TRICUSPID VALVE Normal structure and function. There is trace tricuspid regurgitation. PA systolic pressure isn't a dequately estimated. AORTIC VALVE Normal structure and function. GREAT VESSELS Aortic root is of normal size. Proximal ascending aorta is not well visualized. PERICARDIAL EFFUSION No pericardial effusion. IVC is of normal size and collapses normally with inspiration. Other Information Quality : Technically LimitedRhythm : Technically limited study due to body habitus. Conclusion Normal left ventricular size and systolic function. Ejection fraction is estimated at 55-60%. Normal right ventricular size and systolic function. No hemodynamically significant valve. PA systolic pressure is not adequately estimated. No significant pericardial effusion.
[2024-04-25] MEDS: CLOPIDOGREL BISULFATE 75 MG TAB PO ONE (21:23)
[2024-04-25] MEDS ORDERED: TICAGRELOR 90 MG TAB PO SCH (22:00)
[2024-04-26 01:00] VITALS: BP 106/61; PULSE 65; RESP 19; TEMP 98.3; O2SAT 96
[2024-04-26 05:00] VITALS: BP 112/73; PULSE 65; RESP 19; TEMP 98.2; O2SAT 97
[2024-04-26 07:18] LABS: Basophils # (auto) 0 10 ^3/uL (0-0.2); Basophils % (auto) 0.5 % (0.0-2.0); Eosinophils # (auto) 0.1 10 ^3/uL (0-0.8); Eosinophils % (auto) 1.8 % (0.0-7.0); Hematocrit 45.7 % (41.0-53.0); Hemoglobin 15.2 g/dL (13.5-17.5); Lymphocytes # (auto) 1.5 10 ^3/uL (0.4-5.4); Lymphocytes % (auto) 18.3 % (10.0-50.0); Mean Corpuscular Hemoglobin 27.4 pg (28.0-32.0); Mean Corpuscular Hgb Conc. 33.1 g/dL (32.0-36.0); Mean Corpuscular Volume 82.6 fL (80.0-100.0); Monocytes # (auto) 0.7 10 ^3/uL (0-1.3); Neutrophils # (auto) 5.6 10 ^3/uL (1.6-8.6); Neutrophils % (auto) 70.4 % (37.0-80.0); Nucleated Red Blood Cells % 0.2 %; Platelet Count (auto) 181 10^3/uL (140-450); Red Blood Cells 5.53 10^6/uL (4.5-5.90); Red Cell Distribution Width 13.6 % (11.8-14.3)
[2024-04-26 07:28] LABS: Chloride 104 mmol/L (98-107); Potassium 3.8 mmol/L (3.5-5.1); Sodium 138 mmol/L (136-145)
[2024-04-26 07:29] LABS: Anion Gap 8 (5-15); Calcium 9.6 mg/dL (8.7-10.4); Carbon Dioxide 26 mmol/L (20-31)
[2024-04-26 07:34] LABS: BUN/Creatinine Ratio 11.5 (10.0-20.0); Blood Urea Nitrogen 14 mg/dL (9-23); Glucose 94 mg/dL (74-106)
[2024-04-26 08:00] VITALS: PULSE 58; PULSE 70; RESP 18; O2SAT 98
[2024-04-26] MEDS ORDERED: ATOR-47 PO (08:13)
[2024-04-26] MEDS ORDERED: ASPI-325 PO (08:13)
[2024-04-26] MEDS ORDERED: CLOP75TA70 PO (08:13)
[2024-04-26] MEDS ORDERED: LOSA-533 PO (08:14)
[2024-04-26] MEDS: CLOPIDOGREL BISULFATE 75 MG TAB PO SCH (08:38)
[2024-04-26 09:00] VITALS: BP 119/76; PULSE 69; RESP 18; TEMP 97.5; O2SAT 95
--- NOTE | 2024-04-26 12:16 | DVHPN2 ---
Consult Progress Note Subjective Other Systems: Bruise to right hand and wrist. Denies any cardiac symptoms at time of assessment Objective vital signs Vital Sign Date Time Temp Pulse Resp B/P (MAP) Pulse Ox O2 Delivery O2 Flow Rate FiO2 04/26/24 09:00 97.5 69 18 119/76 (90) 95 97.5 04/26/24 08:00 Room Air* 0 21 Total Intake and Output 04/25/24 04/25/24 04/26/24 14:59 22:59 06:59 Intake Total 240 ml 650 ml Output Total 900 ml Balance -660 ml 650 ml medications Current Medications Medications Dose Ordered Sig/Analy Route Start Time Stop Time Status Last Admin Dose Admin Nitroglycerin 0.4 mg Q5MINP PRN SL 04/24/24 21:30 04/25/24 00:22 0.4 MG Morphine Sulfate 2 mg Q30M PRN IV 04/24/24 21:30 Atorvastatin Calcium 80 mg HS PO 04/24/24 22:00 04/25/24 21:21 80 MG Losartan Potassium 25 mg DAILY PO 04/25/24 10:00 04/26/24 08:38 25 MG Aspirin 81 mg DAILY PO 04/25/24 10:00 04/26/24 08:38 81 MG Clopidogrel Bisulfate 75 mg DAILY PO 04/26/24 10:00 04/26/24 08:38 75 MG Examination: GENERAL:Normal, LUNGS:Normal, CVS:Normal, NEURO:Normal laboratory and microbiology Laboratory Tests 04/26/24 06:40 Test 04/26/24 06:40 Range/Units Serum Glucose 94 74-106 mg/dL Problem List/Assessment/Plan Problem List/Assessment/Plan Coronary artery disease status post PTCA x3 GAYLA NSTEMI type I Dyslipidemia Tobacco use Obesity Plan/Recommendation (Dr. Ballard): Patient seen and examined with . A transthoracic echocardiogram reveals an EF of 55-60%. The patient was taken to the maintenance shop laborer for a coronary angiogram on 04/25/24 in which the patient underwent percutaneous coronary intervention with 3 drug-eluting stents (to ostial and proximal 1st diagonal branch, distal LAD, and mid to distal LAD). We will recommend for the patient to continue uninterrupted dual antiplatelet therapy (with Plavix and aspirin), and lipid-lowering agent. The patient was educated to follow up with Cardiology in the outpatient setting within 1-2 weeks post discharge. There is no further inpatient cardiac workup indicated at this time. Thank you for allowing us to care for this patient. Please call with any questions or concerns. This medical document was created using an electronic medical record system with voice recognition software and computerized dictation system. Although this document has been carefully reviewed, there might still be some phonetic and typographical errors. Occasional wrong-word or ``sound-alike substitutions may have occurred due to the inherent limitations of voice recognition software. These areas are purely typographical due to imperfections of the software programs and do not reflect any compromise in the patient's medical care. Please read the chart carefully and recognize, using context, where these substitutions have occurred. Plan discussed with: Patient Date of Service: Apr 26, 2024 Billing Provider: NITIN BALLARD MD Common Visit Codes: [id number] INP/OBS CARE(HIGH) SAMPSON TORRES [facility] Apr 26, 2024 12:16
--- NOTE | 2024-04-26 12:56 | DVHDSRES ---
Discharge Summary Date of Admission Resident Creating Document: JEREMY REYNA RESIDENT Apr 24, 2024 at 21:27 Date of Discharge: Apr 26, 2024 Admitting Diagnosis Acute chest pain Wounds: No wounds present at this time. Labs/Diagnostic Data: Laboratory Results Test 04/26/24 06:40 04/25/24 13:15 04/25/24 07:24 04/25/24 01:02 White Blood Count 8.0 10^3/uL (4.4-10.8) Red Blood Count 5.53 10^6/uL (4.5-5.90) Hemoglobin 15.2 g/dL (13.5-17.5) Hematocrit 45.7 % (41.0-53.0) Mean Corpuscular Volume 82.6 fL (80.0-100.0) Mean Corpuscular Hemoglobin 27.4 pg (28.0-32.0) Mean Corpuscular Hemoglobin Concent 33.1 g/dL (32.0-36.0) Red Cell Distribution Width 13.6 % (11.8-14.3) Platelet Count 181 10^3/uL (140-450) Mean Platelet Volume 8.4 fL (6.9-10.8) Neutrophils (%) (Auto) 70.4 % (37.0-80.0) Lymphocytes (%) (Auto) 18.3 % (10.0-50.0) Monocytes (%) (Auto) 9.0 % (0.0-12.0) Eosinophils (%) (Auto) 1.8 % (0.0-7.0) Basophils (%) (Auto) 0.5 % (0.0-2.0) Neutrophils # (Auto) 5.6 10 ^3/uL (1.6-8.6) Lymphocytes # (Auto) 1.5 10 ^3/uL (0.4-5.4) Monocytes # (Auto) 0.7 10 ^3/uL (0-1.3) Eosinophils # (Auto) 0.1 10 ^3/uL (0-0.8) Basophils # (Auto) 0 10 ^3/uL (0-0.2) Nucleated Red Blood Cells 0.2 % Sodium Level 138 mmol/L (136-145) Potassium Level 3.8 mmol/L (3.5-5.1) Chloride Level 104 mmol/L (98-107) Carbon Dioxide Level 26 mmol/L (20-31) Anion Gap 8 (5-15) Blood Urea Nitrogen 14 mg/dL (9-23) Creatinine 1.22 mg/dL (0.700-1.30) Glomerular Filtration Rate Calc 70 mL/min (>90) BUN/Creatinine Ratio 11.5 (10.0-20.0) Serum Glucose 94 mg/dL (74-106) Calcium Level 9.6 mg/dL (8.7-10.4) Prothrombin Time 11.5 sec (9.3-11.8) Prothrombin Time INR 1.09 (0.9-1.15) Activated Partial Thromboplast Time > 139.0 SEC (24.5-34.5) Magnesium Level 2.3 mg/dL (1.6-2.6) Troponin I High Sensitivity 705 ng/L (</=54) Test 04/24/24 21:51 04/24/24 13:30 B-Type Natriuretic Peptide 10.61 pg/mL (0-100) Triglycerides Level 82 mg/dL (< 150) Cholesterol Level 292 mg/dL (< 200) LDL Cholesterol 241 mg/dL (< 100) HDL Cholesterol 56 mg/dL (40-59) Thyroid Stimulating Hormone (TSH) 3.00 uIU/mL (0.55-4.78) Urine Color Colorless (Yellow) Urine Clarity Clear (Clear) Urine pH 5.5 (5.0-9.0) Urine Specific [place] 1.003 (1.001-1.035) Urine Protein Negative (Negative) Urine Ketones Negative (Negative) Urine Blood Negative /uL (Negative) Urine Nitrite Negative (Negative) Urine Bilirubin Negative (Negative) Urine Urobilinogen Normal mg/dL (Negative) Urine Leukocyte Esterase Negative /uL (Negative) Urine RBC 4 /hpf (0 - 3) Urine Microscopic WBC < 1 /HPF (0-3) Urine Squamous Epithelial Cells None seen /hpf (<5) Urine Bacteria None seen /hpf (None Seen) Urine Glucose Normal mg/dL (Normal) Total Bilirubin 0.5 mg/dL (0.2-1.0) Aspartate Amino Transferase (AST) 22 U/L (13-40) Alanine Aminotransferase (ALT) 28 U/L (7-40) Alkaline Phosphatase 98 U/L (46-116) Total Protein 7.4 g/dL (5.7-8.2) Albumin 5.0 g/dL (3.2-4.8) Lipase 61 U/L (12-53) Other Laboratory Tests 04/26/24 06:40 Brief Hx & Hospital Course: Hospitalization course: This is a 53-year-old male with past medical history of dyslipidemia presented to the ED with a chief complaint of back and chest pain since 11:00 a.m. prior to this admission. The patient states that yesterday while he was driving he felt a burning sensation across his chest which is constant midsternal burning in nature and radiation necrosis left and right side of the chest associated with elevation of blood pressure and systolic was in 190 that prompted this visit. patient denied shortness of breath ,palpitation, dizziness, blurring of vision, vomiting, abdominal pain or any change in bowel and bladder habit. Initial chest x-ray was grossly unremarkable and CT angio of the chest showed no evidence of pulmonary embolism. Initial EKG was showing ST segment elevation in AVR, with T-wave abnormalities suggesting ischemia. Troponins came significantly elevated at 1242. Cardiology was consulted and patient was taken to the OR for left heart catheterization. During the procedure three drug-eluting stents were placed. One stent was placed on the ostial/branch in the left coronary, other two stents were placed in the mid and distal portion of the LAD. Patient was started on dual antiplatelet therapy, initially ticagrelor but was switched to Plavix due to insurance. We will continue the patient on aspirin 81 mg daily and clopidogrel 75 mg daily for at least one year. The patient was also started on high-dose statin with atorvastatin 80 mg daily and losartan 25 mg daily for high blood pressure. All medications were sent to the pharmacy which the picked him up and bring it to bedside. Patient will be discharged with previous mentioned medications. Patient and agree and understood the plan. Physical examination on the day of discharge: General Appearance: Alert, Oriented X3, Cooperative, No acute distress HEENT: Atraumatic, PERRLA, EOMI, Mucous membrane moist/pink Respiratory: Clear to auscultation, Normal air movement Cardiovascular: Regular rate, Normal S1, Normal S2, No murmurs, no chest wall tenderness Abdominal: Normal bowel sounds, Soft, No tenderness, No hepatosplenomegaly, No masses Extremities: No clubbing, No cyanosis, No edema, Normal pulses, No tenderness/swelling Skin: No rashes, No breakdown, No significant lesion Neuro: Normal gait, Normal speech, Strength at 5/5 X4 ext, Normal tone, Sensation intact, grossly intact cranial nerves Psych/Mental Status: Mental status NL, Mood NL Discharge plan: -continue dual antiplatelet therapy with clopidogrel 75 mg daily p.o. and aspirin 81 mg daily or at least one year. -high dose statin, atorvastatin 80 mg daily for dyslipidemia -start losartan 25 mg daily to control blood pressure -follow-up closely with his PCP in one week and Cardiology in two weeks Discussed with Dr. Castillo. Consults/Reason for consult Cardiology, which perform left heart catheterization and three drug-eluting stent placement. Operations or Procedures EXAM: XR Chest, 2 Views CLINICAL INDICATION: chest pain TECHNIQUE: Frontal and lateral views of the chest. COMPARISON: None FINDINGS: LUNGS AND PLEURAL SPACES: Unremarkable. No consolidation. No pneumothorax. HEART: Unremarkable. No cardiomegaly. MEDIASTINUM: Unremarkable. Normal mediastinal contour. BONES/JOINTS: Unremarkable. No acute fracture. OTHER FINDINGS: . . . IMPRESSION: No acute cardiopulmonary process. EXAM: CT Angiography Chest With Intravenous Contrast CLINICAL INDICATION: R/O DISSECTION TECHNIQUE: Axial computed tomographic angiography images of the chest with intravenous contrast. This CT exam was performed using one or more of the following dose reduction techniques: automated exposure control, adjustment of the mA and/or kV according to patient size, and/or use of iterative reconstruction technique. MIP reconstructed images were created and reviewed. RADIATION DOSE: CTDlvol= CTDIvol mGy, DLP= 341.0 mGy-cm COMPARISON: None FINDINGS: LIMITATIONS: Suboptimal opacification of the pulmonary arteries. PULMONARY ARTERIES: No pulmonary embolism is identified. Some of the distal pulmonary arteries cannot be evaluated due to suboptimal opacification. AORTA: No acute findings. No aortic aneurysm or dissection. LUNGS AND PLEURAL SPACES: Unremarkable. No mass. No consolidation. No significant effusion. No pneumothorax. HEART: Unremarkable. No cardiomegaly. No significant pericardial effusion. No evidence of RV dysfunction. BONES/JOINTS: No acute fracture. No dislocation. SOFT TISSUES: Unremarkable. LYMPH NODES: Unremarkable. No enlarged lymph nodes. OTHER FINDINGS: . . IMPRESSION: 1. No pulmonary embolism is identified. Some of the distal pulmonary arteries cannot be evaluated due to suboptimal opacification. 2. No aortic aneurysm or dissection. EXAM: LIMITED Two-dimensional and M-mode echocardiogram with Doppler and color Doppler. Blood Pressure: 111/65 mmHg INDICATION NSTEMI RISK FACTORS Height: 5' 6", Weight: 159 DIMENSIONS LVDd 4.7 (3.8-5.7cm) LA (2D) 3.2 (1.9-4.0cm) Aortic Root 3.3 (2.0- 3.7cm) LVDs 3.3 (2.5-4.0cm) LA (MM) (1.9-4.0cm) Aortic Cusp Exc 1.9 (1.5- 2.0cm) EF (%) 57.0 (55-70%) Rt. Atrium 2.9 (1.9-4.0cm) Asc. Aorta cm IVSd 1.0 (0.7-1.1cm) RV (D) (1.8-2.4cm) PWd 0.9 (0.7-1.1cm) Mitral Valve Mitral Mitral Stenosis E wave 0.70m/s MV Mean GR. mmHg A wave 0.80m/s MV Peak GR. mmHg E/A ratio 0.9 2D MVA cm2 Aortic Valve Aortic Valve Aortic Stenosis V1 0.80m/s AO Mean GR. 5mmHg V2 1.40m/s AO Peak GR. 9mmHg LVOT Diameter 2.4 (1.8-2.4cm) Doppler CAROLINE 2.58cm2 LEFT VENTRICLE The left ventricle is of normal size. Wall thickness is normal. Ejection fraction is normal and is estimated at 55-60%. There is no gross wall motion abnormalities but endocardial definition is suboptimal. Diastolic function appears to be preserved. E to E prime ratio is in the normal range. RIGHT VENTRICLE The right ventricle is of normal size. Systolic function is normal. ATRIA Both atria are of normal size. Intra-atrial septum is not well visualized. MITRAL VALVE Normal in structure and function. No significant mitral regurgitation. PULMONIC VALVE Likely normal. TRICUSPID VALVE Normal structure and function. There is trace tricuspid regurgitation. PA systolic pressure isn't adequately estimated. AORTIC VALVE Normal structure and function. GREAT VESSELS Aortic root is of normal size. Proximal ascending aorta is not well visualized. PERICARDIAL EFFUSION No pericardial effusion. IVC is of normal size and collapses normally with inspiration. Other Information Quality : Technically Limited Rhythm : Technically limited study due to body habitus. Conclusion Normal left ventricular size and systolic function. Ejection fraction is estimated at 55-60%. Normal right ventricular size and systolic function. No hemodynamically significant valve. PA systolic pressure is not adequately estimated. No significant pericardial effusion. Date: 04/25/24 Preop Diagnosis: Patient presented with chest pain. He was diagnosed with non ST-elevation myocardial infarction. He has been having dynamic EKG changes with ST depressions and intermittent chest pain. He was brought urgently to the slab miller operator for coronary angiography and potential intervention. Postop Diagnosis: 1. Subtotal occlusion of a medium-sized ostial and proximal 1st diagonal branch treated today with a drug-eluting stent. 2. Severe stenosis in distal LAD treated today with drug-eluting stent. 3. Severe stenosis in the mid to distal LAD treated today with a drug-eluting stent. 4. Severe stenosis in the small proximal ramus branch has will be treated medically. 5. Mild to moderate disease in the left circumflex and RCA. 6. Low LVEDP. Surgeon: Ashley Segura MD Anesthesiologist: Patient was deemed an adequate candidate for conscious sedation. Versed and fentanyl were given during the procedure. He received a total of 2 mg of Versed and 50 mcg of fentanyl. I was available throughout the procedure for continuous [id number] monitoring. Anesthesia: Local Consent: The patient was informed of the risks and benefits of the procedure. These include but are not limited to complications of anesthesia, postoperative infection, incomplete relief of symptoms, recurrence of symptoms, damage to blood vessels, nerves and tendons, deep venous thrombosis, pulmonary embolism and possible need for repeat surgery in the future. Estimated Blood Loss: 15 cc Name of Procedure Performed 1. Left heart catheterization. 2. Selective coronary angiography. 3. Percutaneous coronary intervention with a stenting of ostial and proximal 1st diagonal branch. 4. Percutaneous coronary intervention with a stenting of distal LAD. 5. Percutaneous intervention with stenting of mid to distal LAD. 6. Moderated sedation. Procedure Details Procedure Details: The patient was brought to the slab miller operator in a stable condition. Patient was found to have normal pulses in the right radial artery. The right wrist area was sterilized and draped in a sterile fashion. The skin was anesthetized using 1% lidocaine. Access in the right radial artery was obtained using a Seldinger approach. An 11 cm sheath was placed in the right radial artery. The left heart catheterization, left coronary angiography, and right coronary angiography were performed using a 6 [place] Freddie catheter. At the completion of the procedure hemostasis in radial artery was obtained using a TR band. Findings: Hemodynamics: Aortic pressure was 100/60 mm Hg, LVEDP was 3 mm Hg. There is no significant gradient on LV to aorta pullback. Coronary angiography: The left main coronary artery is a normal caliber trifurcating vessel. It is free of any significant disease. The left anterior descending artery is normal caliber vessel that extends to the apex. Proximal to mid vessel has mild diffuse disease. Mid vessel has 70% segmental stenosis. Distal vessel has 90% segmental stenosis. There is a 1st diagonal branch that is moderate in size and has ostial and proximal diffuse 99% stenosis with MATTHEW 2 flow. There is a 2nd diagonal branch that is small in size and has ostial 50% stenosis of the is discrete. Ramus intermedius branch. It is a small vessel. Has proximal 90% stenosis. The left circumflex artery is a normal-caliber nondominant vessel. Mid vessel has 40% stenosis. The obtuse marginal branch and left posterolateral branch are with no significant disease. The right coronary artery is a normal caliber and dominant vessel. It has mild diffuse disease. RPDA is with no significant stenosis. The right posterolateral branch has 40% diffuse proximal to mid disease. Interventions: Stenting of ostial and proximal 1st diagonal branch: Lesion severity is 99%. It is a noncalcified vessel. Lesion length is 20 mm. Initial flow is MATTHEW. G uide catheter used was 6 [place] XB 3.0. The vessel was wired using 0.014 runthrough wire. Balloon angioplasty was performed using a 2.0 x 12 mm emerge balloon at nominal pressure. This was followed by stenting using a 2.25 x 26 mm thomas drug-eluting stent deployed at nominal pressure. Postdilatation was performed using a stent balloon at 14 atmosphere. Post angio showed no residual stenosis, normal flow, and no dissection. Stenting of distal LAD: Lesion severity is 90%. It is a noncalcified and non bifurcation lesion. Lesion length is12 mm. Initial flow is MATTHEW 3. The vessel was wired using 0.014 runthrough wire. Balloon angioplasty was performed using a 2.5 x 12 mm emerge balloon at nominal pressure. This was followed by stenting using a 2.25 x 15 mm thomas drug-eluting stent deployed at nominal pressure. This was post dilated using a 2.75 mm stent balloon. Post angio showed no residual stenosis, normal TIMI3 flow, no dissection. Stenting of mid to distal LAD: Lesion severity is 70%. It is a noncalcified and non bifurcation lesion. Lesion length is 20 mm. Initial flow is MATTHEW 3. Stenting was performed using a 2.75 x 22mm thomas drug-eluting stent that overlapped with the distal LAD stent. This was deployed at normal pressure. Postdilatation was performed using the stent balloon at 14 atmosphere. The overlap segment of the 2 stents were also postdilated using stent balloon at nominal pressure. Post angio showed no residual stenosis, normal TIMI3 flow, no dissection. Impressions: 1. Low LVEDP. 2. Severe stenosis/subtotal occlusion in the ostial and proximal 1st diagonal branch which is the culprit for this presentation. This was treated today with drug-eluting stent. 3. Severe stenosis of the distal LAD treated today with drug-eluting stent. 4. Severe stenosis of mid to distal LAD treated today with drug-eluting stent. 5. Severe stenosis in the proximal small ramus intermedius branch that will be treated medically. 6. [id number] disease in the left circumflex and RCA. Plan: 1. Patient was loaded with Brilinta in the slab miller operator. Continue Brilinta 90 mg twice daily for 12 months. Brilinta can be switched to Plavix in 1 month if needed. 2. Continue aspirin 81 mg daily. 3. Aggressive medical therapy and risk factors modifications. Condition at Discharge: Good Final Diagnosis/Problems List Acute chest pain likely ACS Acute coronary syndrome with 3 GAYLA placement S/P 3 GAYLA placement NSTEMI type I Hypertensive heart disease Ruled out pulmonary emboli Discharge Disposition: Home Discharge Instruct/Medications Diet: Cardiac 2g Na,low cholest Activity: No Restrictions, As Tolerated Follow Up/Referral: F/U with PCP in 1 week F/U with cardiology in 2 weeks Medications: -clopidogrel 75 mg daily p.o. -aspirin 81 mg daily p.o. -atorvastatin 80 mg daily p.o. -losartan 25 mg daily Discharge Statement: "Patient was advised to return to the ER or call 911 if any headaches, dizziness, shortness of breath, chest pain, abdominal pain, bleeding, fevers, or worsening of medical condition. Patient was counseled about treatment plan, medications, possible side effects, patientverbalized understanding. All questions were answered to the best of my ability. This discharge took greater then 30 minutes in planning, reviewing documentation, counseling the patient, and discussing with other team members." ASSESSMENT ASSESSMENT Assessment Acute chest pain likely ACS Acute coronary syndrome with 3 GAYLA placement S/P 3 GAYLA placement NSTEMI type I Hypertensive heart disease Ruled out pulmonary emboli Addendum Addendum Addendum I was physically present for the hunter portions of the service provided to patient by THE RESIDENT. I have reviewed the documentation, discussed the case with resident and agree with the resident's documentation except as noted. Also the patient's clinical case was discussed with the patient's nurse. This medical document was created using an electronic medical record system with computerized dictation system. Although this document has been carefully reviewed, there might still be some phonetic and typographical errors. These areas are purely typographical due to imperfections of the software programs, and do not reflect any compromise in the patient's medical care. Discussed in length with the patient and his ; the importance of adherence to medical management including medications especially aspirin and Plavix on daily basis along with high-dose atorvastatin. Late signature. Date of Service: Apr 26, 2024 Billing Provider: LEISA CASTILLO MD Common Visit Codes: 01679-VTC/OBS DISCH DAY >30min JEREMY REYNA RESIDENT Apr 26, 2024 12:56 LEISA CASTILLO MD Apr 26, 2024 19:21
[2024-04-26 13:00] VITALS: BP 123/87; PULSE 73; RESP 16; TEMP 97.7; O2SAT 93
[2024-04-26 14:54] VITALS: BP 128/74; PULSE 62; RESP 20; TEMP 98; O2SAT 96
--- NOTE | 2024-04-27 10:04 | ECG ---
[facility] Test Date: 2024-04-25 Test Time: 11:36:34 Pat Name: DASH PAREDES Department: Room: 0277T B Gender: M Critical Care Unit Nurse: Kervin JENKINS : 1970 Requested By: AMAN TERRELL Order Number: [id number] Reading MD: Ashley eSgura Measurements Intervals [employer] Rate: 66 P: 9 AK: 154 QRS: 48 QRSD: 94 T: 0 QT: 404 QTc: 423 Interpretive Statements Normal sinus rhythm Electronically Signed On 04-29-2024 9:52:41 PST by Ashley Segura Please click the below link to view image of tracing.
--- NOTE | 2024-04-28 10:00 | ECG ---
[facility] Test Date: 2024-04-24 Test Time: 22:28:38 Pat Name: DASH PAREDES Department: ER Room: 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
--- NOTE | 2024-04-28 10:00 | ECG ---
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
== END 2024-04-26 15:45 | disposition home or self-care (01) | DRG 174 ==
LOC: ER 13:20 → TELE 21:27 → TELE-WESTW 21:28
PROVIDERS: ATTEND Internal Medicine
PROC: 027136Z Dilation of Coronary Artery, Two Arteries with Three Drug-eluting Intraluminal Devices, Percutaneous Approach (ICD-10-PCS; principal; 2024-04-25)
PROC: 4A023N7 Measurement of Cardiac Sampling and Pressure, Left Heart, Percutaneous Approach (ICD-10-PCS; 2024-04-25)
PROC: B211YZZ Fluoroscopy of Multiple Coronary Arteries using Other Contrast (ICD-10-PCS; 2024-04-25)
DX: I21.4 Non-ST elevation (NSTEMI) myocardial infarction (principal); D68.69 Other thrombophilia; I11.9 Hypertensive heart disease without heart failure; E66.9 Obesity, unspecified; E78.5 Hyperlipidemia, unspecified; I25.10 Atherosclerotic heart disease of native coronary artery without angina pectoris; F41.9 Anxiety disorder, unspecified; Z82.49 Family history of ischemic heart disease and other diseases of the circulatory system; Z83.3 Family history of diabetes mellitus; Z68.25 Body mass index [BMI] 25.0-25.9, adult; Z79.899 Other long term (current) drug therapy
CPT/HCPCS: 36415; 71046; 71275; 80048; 80053; 80061; 81001; 83690; 83735; 83880; 84443; 84484; 85025; 85610; 85730; 92920; 92941; 93005; 93306; 93458; 99152; 99291; G0378; J2250; J2405

== ENCOUNTER 2024-04-27 14:17 | Emergency (ER) | payer MEDICAID ==
[~2024-04-27] VITALS: Ht 167.6 cm; Wt 68.9 kg
[~2024-04-27 14:17] MED LIST: ASPI-325 PO; ATOR-47 PO; CLOP75TA70 PO; LOSA-533 PO
[2024-04-27 15:13] VITALS: BP 137/96; PULSE 102; RESP 20; TEMP 97.9; O2SAT 97
--- NOTE | 2024-04-27 16:22 | ED.PDOC ---
HPI Allergic reaction HPI Comments This is a 53-year-old male who presents after recent dc s/p left heart catheterization. Has follow-up closely with his PCP in one week and Cardiology in two weeks Presents for concern of a skin rash x 2 hours. Rash located to abdominal cavity and itchy. Tried no medication Patient denies any fever, cough, difficulty swallowing, or shortness of breath Denies fever chills night sweats nausea vomiting diarrhea Denies persistent loss of appetite nor unintentional weight loss over the past 3 months Denies history of STI Denies cough and cold-like symptoms Denies recent travel Denies sick contact with similar rash Denies new topical creams/lotions/shampoos/detergents Denies noticing any insects Denies bruising bleeding anywhere Denies chronic skin issues or family history of skin issues Chief Complaint: Rash Time Seen by MD: 14:31 Primary Care Provider: ASHLEIGH Reviewed Notes: Nurses Notes, Medications, Allergies Allergies: Coded Allergies: NO KNOWN ALLERGIES (Unverified , 04/24/24) Home Meds Active Scripts Losartan Potassium (Losartan Potassium) 25 Mg Tab, 1 TAB PO DAILY for 30 Days, #30 TAB 1 Refill Prov:JEREMY REYNA RESIDENT 04/26/24 Atorvastatin Calcium (ATORVASTATIN CALCIUM) 80 Mg Tab, 1 TAB PO DAILY for 30 Days, #30 TAB 5 Refills Prov:JEREMY REYNA RESIDENT 04/26/24 Aspirin (Aspirin Low Dose) 81 Mg Tab, 81 MG PO DAILY for 30 Days, #30 TAB Prov:JEREMY REYNA RESIDENT 04/26/24 Clopidogrel Bisulfate (CLOPIDOGREL) 75 Mg Tab, 1 TAB PO DAILY for 30 Days, #30 TAB 1 Refill Prov:JEREMY REYNA RESIDENT 04/26/24 Information Source: Patient Mode of Arrival: Ambulatory Past Medical History PAST MEDICAL HISTORY: Denies Surgical History: Denies all surgeries Family History Family History: Reviewed,noncontributory to illness Social History Smoker: Non-Smoker Alcohol: Denies ETOH Use Drugs: Denies Drug Use Lives In: Home All Other Systems: Reviewed and Negative (Per HPI) Physical Exam General Appearance: No Apparent Distress, Normal HEENT: Normal ENT Inspection, Pharynx Normal, TMs Normal Neck: Full Range of Motion, Non-Tender, Normal, Normal Inspection Respiratory: Chest Non-Tender, Lungs Clear, No Accessory Muscle Use, No Respir atory Distress, Normal Breath Sounds Cardiovascular: No Edema, No JVD, No Murmur, No Gallop, Normal Peripheral Pulses, Regular Rate/Rhythm Breast Exam: Deferred Gastrointestinal: No Organomegaly, Non Tender, No Pulsatile Mass, Normal Bowel Sounds, Soft Genitalia: Deferred Pelvic: Deferred Rectal: Deferred Extremities: No calf tenderness, Normal capillary refill, Normal inspection, Normal range of motion, Non-tender, No pedal edema Musculoskeletal : Apperance: Normal Neurologic: Alert, No Motor Deficits, Normal Affect, Normal Mood, No Sensory Deficits Cerebellar Function: Normal Reflexes: Normal Skin: Dry, Normal Color, Rash (mild ab rash, erythematous, no hives. no ttp. ), Warm Lymphatic: No Adenopathy Was a procedure done? Was a procedure done?: No Differential diagnosis (all) Differential Diagnosis: Urticaria X-Ray, Labs, Meds, VS Vital Signs Date Time Temp Pulse Resp B/P (MAP) Pulse Ox O2 Delivery O2 Flow Rate FiO2 04/27/24 15:13 102 20 97 Room Air 04/27/24 15:13 97.9 102 20 137/96 (110) 97 97.9 04/27/24 14:23 97.9 102 20 137/96 (110) 97 X-Ray, Labs, Meds, VS Comment . Pt presents ED for an allergic reaction. Solu-Medrol and Pepcid administered in ED for treatment. Patient reports significant improvement in symptoms following treatment. Patient was monitored in the ED for an extended amount of time. Patient was instructed to use use calamine lotion as needed for itchiness Follow-up with PCP in 1 to 2 days. Patient needs estimator and drafter referral for further testing Return to ED if symptoms persist, or sooner if symptoms worsen Time of 1ST Reevaluation: 17:30 Reevaluation 1ST: Improved Patient Education/Counseling: Diagnosis, Treatment Family Education/Counseling: Diagnosis, Treatment Departure 1 Departure Time of Disposition: 17:42 Impression: Primary Impression: Allergic reaction Qualified Codes: T78.40XA - Allergy, unspecified, initial encounter Disposition: HOME / SELF CARE / HOMELESS Condition: Stable Discharged With: Self Critical Care Note Critical Care Time?: No Stability Stability form required: MAINOR Hamm NP Apr 27, 2024 16:22
[2024-04-27] MEDS: FAMOTIDINE 20 MG TAB PO ONE (16:40)
[2024-04-27] MEDS: methylPREDNISolone SOD SUCC 125 MG/2 ML VL IM ONE (16:40)
[2024-04-27] MEDS: diphenhdrAMINE HCL 25 MG CAP PO ONE (16:40)
== END 2024-04-27 17:49 | disposition home or self-care (01) ==
LOC: ER 14:17
DX: T78.49XA Other allergy, initial encounter (principal); Z79.899 Other long term (current) drug therapy; Z79.84 Long term (current) use of oral hypoglycemic drugs; X58.XXXA Exposure to other specified factors, initial encounter
CPT/HCPCS: 96372; 99283; J2919